=== PATIENT | female | born 1970 | race African-American/Black ===

== ENCOUNTER 2018-07-31 12:19 | Day surgery (SDC) | payer BC ==
--- OUTSIDE RECORDS SUMMARY | 2018-07-31 12:22 | XMS REPORT | Summary of Care ---
:1970 Author Name ANNY SALEEM M.D. Address Unavailable Unavailable , Care Team Providers Name Role Phone ANNY SALEEM M.D. Unavailable Unavailable ANNY SALEEM MD Unavailable Unavailable Unavailable Unavailable Unavailable Functional Status Name Dates Details Functional status health issues are not documented Status: Name Dates Details Cognitive status health issues are not documented Status: Problems Name Dates Details Anxiety associated with depression (300.4, F41.8) Status: Active Medications Name Dates Details No Reported Medications Refills: 0 Active Allergies and Adverse Reactions Name Dates Details No Known Drug Allergies (Allergy) Status: Active Past Medical History Name Dates Details History of depression (V11.8, Z86.59) Status: Resolved Procedures Procedure Dates Details History of Tubal Ligation Completed History of Ectopic removal Completed Immunization Name Dates Details Influenza Not Administered Tdap on: 29-Jul-2013 Family History Name Dates Details Family history of essential hypertension (V17.49, Z82.49) Status: Active Family history of malignant neoplasm of cervix (V16.49, Z80.49) Status: Active Name Dates Details Family history of alcoholism (V17.0, Z81.1) Status: Active Name Dates Details Family history of essential hypertension (V17.49, Z82.49) Status: Active Name Dates Details Family history of alcoholism (V17.0, Z81.1) Status: Active FH: throat cancer (V16.0, Z80.0) Status: Active Social History Name Dates Details - Status: Name Dates Details Never smoker Vital Signs Date Test Result Details [id number] Physical Findings 9 Status: Comments: PHQ-9 Adult Depression Screening Physical Findings 0 Status: Comments: Alcohol Screen - How many times in the past yr have you had 5 (for M) or 4 (for F) or 4 (for all > 65yrs) or more drinks in a day? [id number] Physical Findings 9 Status: Comments: PHQ-9 Adult Depression Screening Physical Findings 0 Status: Comments: Alcohol Screen - How many times in the past yr have you had 5 (for M) or 4 (for F) or 4 (for all > 65yrs) or more drinks in a day? [id number]:37 BP Systolic 122 mm[Hg] Status: BP Diastolic 80 mm[Hg] Status: Height 64 in Status: Weight 153 lb Status: Body Mass Index Calculated 26.26 kg/m2 Status: Body Surface Area Calculated 1.75 m2 Status: Temperature 97.4 f Status: Heart Rate 85 /min Status: Results Date Description Value Details [id number]:00 . [facility] - HPV High Risk REPORT negative (Normal) [id number]:23 [H] HPV (High Risk) HPV (High Risk) normal (Normal) Plan of Care Name Dates Details Planned Observations Planned Goals not documented Interventions Provided Labs/Procedures/Imaging. [facility] - HPV High Risk; Done: 21 Apr 2018[H] HPV (High Risk); Done: 29 Jul 2018InstructionsPatient Specific Education Given; Done: 29 Jul 2018PlanAge and risk appropriate labs discussed; she thinks she may have them done so not ordered todayHealthy diet, exercise and weight management encouragedFollow up as needed Instructions Name Dates Details Instructions not documented Encounters Appointment; ANNY SALEEM M.D. On: 29-Jul-2018 14:15 Encounter Diagnosis: Problem not documented
[2018-07-31 12:32] LABS: Specific Gravity 1.015 (1.005-1.030)
[2018-07-31] MEDS ORDERED: Ringers Lactate 1,000 ML IV ONE (12:41)
[2018-07-31] MEDS: CEFAZOLIN 2GM (PREMIX IV) 2 GM/50 ML BAG ONE ×2 (13:27→14:43)
[2018-07-31] MEDS ORDERED: PROPOFOL 200 MG/20 ML VIAL IV ONE (14:31)
[2018-07-31] MEDS ORDERED: FENTANYL CITR 100 MCG/2 ML ONE (14:32)
[2018-07-31] MEDS ORDERED: LIDOCAINE 2% MPF 5 ML VIAL ONE (14:33)
[2018-07-31] MEDS ORDERED: MIDAZOLAM HCL 2 MG/2 ML INJ ONE (14:33)
[2018-07-31] MEDS ORDERED: NS 0.9% VIAL 0 ML ONE (14:44)
[2018-07-31] MEDS ORDERED: VASOPRESSIN 20 UNIT/ML VIAL IV ONE (15:00)
[2018-07-31] MEDS ORDERED: KETOROLAC 30 MG/ML INJ ONE (15:18)
[2018-07-31] MEDS ORDERED: IBUPROFEN 200 MG TAB PO ONE (16:45)
--- NOTE | 2018-08-02 12:22 | OP ---
Date of Procedure: 07/31/2018 Surgeon: Lina Salinas MD Preoperative Diagnosis: Menorrhagia. Postoperative Diagnosis: Menorrhagia. Procedures Performed: Hysteroscopy, endometrial ablation with HTA. Anesthesia: General with LMA. Specimens: None. Complications: None. Drains: None. Condition: Stable. Findings: Uterine cavity empty. Excellent ablation effect. Procedure In Detail: After informed consent was verified, the patient was taken back to the OR, plac ed in a supine fashion on the operating table. After 2 g of Ancef were given, she was placed in a do rsal lithotomy position. SCDs were placed and started. Pelvic exam performed. Prep x3 with Betadin e was done on the vagina and cervix and speculum placed to expose the cervix. Anterior lip grasped w ith 2 Allis clamps. Attempted to insert the hysteroscope with HTA sheath that was primed already dir ectly, but there was significant cervical canal resistance due to stenosis. The scope was pulled out after checking the direction of the cavity. The os was dilated. Internal os dilated to 16-Syriac, and HTA sheath was placed without much difficulty after positioning the tip of the scope in the middl e of the uterine cavity. After confirming the position, the Allis clamp on the anterior lip was maryann ched to the HTA sheath, posterior fornix packed with 2 Ray-Tecs per the package instructions for HTA, and after stabilizing this, cavity integrity test was done, after it passed without any leak, then a blation cycle was started. A full heating cycle with 10-minute ablation cycle and 1-1/2 minute cooli ng cycle were completed without any interruptions. After this, diagnostic hysteroscopy was performed to enter the endometrial cavity. Excellent global ablation effect. The scope was removed. All the Ray-Tecs were removed. Instrument, needle, and sponge counts were done and were correct at the end of the case. The patient tolerated the procedure well. She was recovered from anesthesia and taken to PACU in stable condition. She has a 3-week postop appointment with me. FUNMILAYO Voice ID: [id number] Report ID: [id number]
== END 2018-07-31 17:01 | disposition home or self-care (01) ==
LOC: OR 12:19
PROVIDERS: ATTEND Obstetrics & Gynecology
PROC: 0U5B8ZZ Destruction of Endometrium, Via Natural or Artificial Opening Endoscopic (ICD-10-PCS; principal; 2018-07-31 13:30)
DX: N92.0 Excessive and frequent menstruation with regular cycle (principal); Z80.49 Family history of malignant neoplasm of other genital organs; Z80.1 Family history of malignant neoplasm of trachea, bronchus and lung; Z80.0 Family history of malignant neoplasm of digestive organs
CPT/HCPCS: 81025; J0690; J2250; J2704; J3010

== ENCOUNTER 2021-05-09 08:22 | Day surgery (SDC) | payer BC ==
--- NOTE | 2021-05-08 12:35 | RAD REPORT ---
EXAM DESCRIPTION: RAD - Chest Single View - 05/08/2021 12:30 pm CLINICAL HISTORY: PRE PROCEDURE SCREENING COMPARISON: No comparisons FINDINGS: Lines: None. Lungs: No evidence of edema or pneumonia. Pleural: No significant pleural effusions or pneumothorax. Cardiac: The heart size is within normal limits. Bones: No acute fractures. Other: IMPRESSION: No acute cardiopulmonary disease.
[2021-05-09] MEDS ORDERED: Gentamicin Inj 180 MG in NA CHLORIDE 0.9% 100 ML IVPB ONE (09:00)
[2021-05-09] MEDS ORDERED: AMPICILLIN SODIUM 2 GM in NA CHLORIDE 0.9% 100 ML IVPB ONE (09:00)
[2021-05-09] MEDS ORDERED: Ringers Lactate 1,000 ML IV ONE (09:37)
[2021-05-09] MEDS ORDERED: MIDAZOLAM HCL 2 MG/2 ML INJ ONE (11:25)
[2021-05-09] MEDS ORDERED: propofoL 200 MG/20 ML VIAL IV ONE (11:26)
[2021-05-09] MEDS ORDERED: LIDOCAINE 1% MPF 5 ML VIAL ONE (11:26)
[2021-05-09] MEDS ORDERED: FENTANYL CITR 100 MCG/2 ML ONE (11:26)
[2021-05-09] MEDS ORDERED: GLYCOPYRROLATE 0.2 MG/ML SYR ONE (11:30)
[2021-05-09] MEDS ORDERED: ROCURONIUM 50 MG/5 ML VIAL IV ONE (11:34)
--- NOTE | 2021-05-09 11:50 | EKG ---
Test Date: 2021-05-08 Test Time: 11:20:10 Geographic Area Intelligence Officer: CANDIE MEASUREMENT RESULTS: Intervals: Rate: 71 IN: 146 QRSD: 72 QT: 408 QTc: 443 Trent: P: 37 IN: 146 QRS: 14 T: 41 INTERPRETIVE STATEMENTS: Normal sinus rhythm Possible Left atrial enlargement Left ventricular hypertrophy Abnormal ECG No previous ECG available for comparison Electronically Signed On 05-09-21 11:46:22 CDT by Galen Dykes
[2021-05-09 11:56] VITALS: O2SAT 100
[2021-05-09] MEDS ORDERED: dexAMETHasone 10 MG/ML VIAL ONE (12:11)
[2021-05-09] MEDS ORDERED: PHENAZOPYRIDINE 100MG TAB PO ONE ×5 (12:30→14:19)
[2021-05-09] MEDS ORDERED: CODEINE 30MG/APAP 300MG TAB PO PRN (12:30)
--- NOTE | 2021-05-09 12:32 | RAD REPORT ---
EXAM DESCRIPTION: RAD - Urethrocystogrphy Retrograde - 05/09/2021 11:44 am CLINICAL HISTORY: STENT COMPARISON: No comparisons FINDINGS/IMPRESSION 16 INTRAOPERATIVE FLUOROSCOPIC IMAGES OBTAINED DEMONSTRATING CANNULATION OF THE RIGHT URETER AND PLACEMENT OF A RIGHT URETERAL STENT. FILLING DEFECTS IN THE RIGHT DISTAL URETER SUSP ICIOUS FOR A RENAL CALCULUS. THIS MEASURES APPROXIMATELY 7 MILLIMETERS. Fluoro time: 26 seconds
[2021-05-09] MEDS ORDERED: ONDANSETRON 4 MG/2 ML VIAL ONE (12:48)
[2021-05-09 14:08] VITALS: BP 135/80; TEMP 97.6
--- NOTE | 2021-05-09 22:48 | OP ---
Date of Procedure: 05/09/2021 Surgeon: CHRISTOPHER SEGUNDO Preoperative Diagnoses: 1.Right obstructive ureterolithiasis. 2.Right hydronephrosis. 3.Right flank pain. Postoperative Diagnoses: 1.Right obstructive ureterolithiasis. 2.Right hydronephrosis. 3.Right flank pain. Principal Procedures: 1.Cystoscopy. 2.Right retrograde pyelography. 3.Aspiration of massively dilated renal pelvis and ureter. 4.Right ureteroscopy with laser lithotripsy and stent placement. Indication For Procedure: Ms. Hogue presented to the [facility] initially earlier this year with a nonobstructing calculus. She was recommended for shockwave lithotripsy, but she delayed and p resented to the Emergency Department at [facility] subsequently with obstruction due to an approx imately 6 or 7 mm calculus. She presented today for definitive management of that obstruction and th e stone, if possible. Procedure Note: The patient was consented in the preoperative holding area before being transferred to the operative suite, where general anesthesia was induced. She was given ampicillin 2 g and genta micin IV antimicrobial prophylaxis. Pneumoboots were provided for DVT prophylaxis. She was placed i n the lithotomy position, padded and secured to the table appropriately. Her genitalia were prepped using Hibiclens and draped in standard fashion. The case was begun using a 22-Zambian rigid cystoscop e and its obturator to dilate the meatus and into the bladder. Direct visualization was then perform ed, and the bladder was surveyed. There were no mucosal lesions, foreign bodies, or stones noted thr oughout. The ureteral orifices were orthotopic in location, and the right ureteral orifice was somew hat stenotic in appearance. I thus utilized the tip of the Sensor wire and a 5-Zambian ureteral acces s catheter to gain access into the ureteral orifice and performed a retrograde pyelogram. Right retrograde pyelography: Using a 70:30 mixture of Omnipaque and saline, contrast was injected via the 5-Zambian ureteral access catheter and did delineate a very markedly uretero-nephrotic segment of the distal ureter. Despite 10 cc of contrast instilled, the proximal ureter did not delineate. As a result, I injected an addit ional 10 cc of full-strength contrast to delineate the mid and proximal ureter. A filling defect was evident in the distal ureter, which was likely the stone. The contrast still did not enter the paulino l pelvis. As a result, I advanced the 5-Zambian ureteral access catheter into the mid proximal ureter and again injected contrast before delineating a massively hydronephrotic renal pelvis and calyces. As a result, I then passed the Sensor wire into the putative upper pole of the collecting system and over it, passed a dual-lumen catheter. I then aspirated the ureter and renal pelvis of approximatel y 150 cc of stagnant urine. I then performed direct vision ureteroscopy alongside the indwelling saf ety wire. The calculus was noted to be present within the mid distal ureter, and utilizing a 200 nm laser fiber and laser settings of 0.8 joules and 8 hertz, that was increased to 15 hertz due to the v jody hard nature of the stone, I was able to quickly fragment the stone into dust as small as the size of the laser fiber. I then surveyed beyond the distal portion of the ureter all the way into the pr oximal ureter at the level of the UPJ as identified fluoroscopically. No additional stones were note d. I then passed under direct vision, a Bentson guidewire via the ureteroscope into the upper pole o f the kidney. I then removed the semi-rigid ureteroscope and passed the flexible ureteroscope over t he Bentson guidewire into the kidney. I surveyed each of the calyces of the kidney, and no additiona l stones were noted. An antegrade pyelogram was performed to confirm all the calyces were seen. I a gain had to aspirate several dozen cc of urine out of the renal pelvis, which was just somewhat flopp y at this point due to the prolonged hydronephrosis. I then surveyed from the proximal down through the mid and into the distal ureter with the flexible ureteroscope on the way out before encountering a shell of the stone, which I had begun to fragment, that was incompletely fragmented. Because it wa s approximately 2 or 3 mm in diameter by approximately 0.5 mm thick, I utilized a Zero Tip Nitinol ba sket, 1.9 cm to grasp the couple of stone fragments that were present and delivered them via the uret eral orifice and out of the meatus with ease. These were collected and sent for stone analysis. I t hen backloaded the cystoscope over the indwelling safety wire and passed a 6-Zambian by 24 cm double-J ureteral stent with a coil observed fluoroscopically within the renal pelvis and one cystoscopically formed within the bladder. The bladder was then decompressed of fluid and urine, and the patient wa s taken out of the lithotomy position. She was then awakened from general anesthesia, transferred to a stretcher, and then transferred to the recovery room in good condition. Complications: None. Discharge Disposition: She should maintain the ureteral stent for a period between 1 to 3 weeks to a llow normalization of her massively hydronephrotic kidney and ureter. She should then follow up in [facility] for cystoscopy and right ureteral stent extraction. Additionally, if the patient i s a recurrent stone former, she will require evaluation for that, but I think this is her first stone event. ROBERTO/STEPHEN Voice ID: [id number] Report ID: [id number]
== END 2021-05-09 13:55 | disposition home or self-care (01) ==
LOC: OR 08:22
PROVIDERS: ATTEND Urology
PROC: 0T768DZ Dilation of Right Ureter with Intraluminal Device, Via Natural or Artificial Opening Endoscopic (ICD-10-PCS; 2021-05-09)
PROC: 0TF68ZZ Fragmentation in Right Ureter, Via Natural or Artificial Opening Endoscopic (ICD-10-PCS; principal; 2021-05-09 10:00)
DX: N13.2 Hydronephrosis with renal and ureteral calculous obstruction (principal); R10.9 Unspecified abdominal pain; Z20.822 Contact with and (suspected) exposure to COVID-19
CPT/HCPCS: 93005; 36415; 84703; 71045; 74450; 51610; 52356; U0003; J2704; J1580; J2250; J3010; J1100; J7120; J2405; J0290